=== PATIENT | female | born 1950 | race Caucasian/White ===

== ENCOUNTER 2017-07-08 12:32 | Emergency (ER) | payer MEDICARE, BC ==
--- NOTE | 2017-07-08 12:43 | EDM.PDOC ---
ED HPI GENERAL MEDICAL PROBLEM - General Chief Complaint: Gastrointestinal Problem Stated Complaint: TAKING CHEMO AND HAVING TROUBLE KEEPING ANYTHING D Time Seen by Provider: 07/08/17 12:32 Source of Information: Reports: Patient, Family, Old Records, RN, RN Notes Reviewed History Limitations: Reports: No Limitations - History of Present Illness INITIAL COMMENTS - FREE TEXT/NARRATIVE: Patient presents to the ED at [facility] with worsening nausea and vomiting. Patient was diagnosed some time ago with Stage IIIc Ovarian cancer. She is being treated through [facility] in [place] by Dr. Blanc. The patient normally has issues with N/V post chemo treatments. She states todays symptoms are not well controlled with her antiemetics at home. She also states she was suppose to get an IV infusion of NS yesterday, but did not received it. Otherwise, patient states she feels ok. No pain. Feels somewhat weak, but that is her normal. Vomitus has been green/bile. She is not even able to keep water down at times. Otherwise no other complaints. Patient states she usually has some nausea after he Taxol chemo injections, but todays seems worse and her PO Zofran does not seem to be helping. Onset Date: 07/07/17 - Related Data Allergies Allergy/AdvReac Type Severity Reaction Status Date / Time No Known Allergies Allergy Verified 07/08/17 13:12 Home Meds: Home Meds Aspirin 81 mg PO DAILY 07/08/17 [History] Fish Oil/DHA/EPA [Fish Oil 1,200 MG] 2 each PO DAILY 07/08/17 [History] Lisinopril [Zestril] 15 mg PO DAILY 07/08/17 [History] Multivitamin [Multivitamins] 1 each PO DAILY 07/08/17 [History] Mv-Mn/FA/Vit K/Lycop/Lut/Zeaxa [Ocuvite Eye + Multi Tablet] 1 each PO DAILY [History] Ondansetron [Zofran] 8 mg PO BID 07/08/17 [History] Polyethylene Glycol 3350 [MiraLAX] 17 gm PO DAILY 07/08/17 [History] Polyvinyl Alcohol/Povidone/Pf [Refresh Classic Eye Drops] 2 each OP BEDTIME [History] Prochlorperazine Maleate [Compazine] 5 mg PO QID 07/08/17 [History] Past Medical History Cardiovascular History: Reports: Hypertension Oncologic (Cancer) History: Reports: Ovarian Social & Family History - Tobacco Use Smoking Status *Q: Never Smoker - Recreational Drug Use Recreational Drug Use: No ED ROS GENERAL - Review of Systems Review Of Systems: See Below Constitutional: Reports: Weakness (chronic). Denies: Fever, Chills Respiratory: Denies: Shortness of Breath, Cough Cardiovascular: Denies: Chest Pain, Palpitations GI/Abdominal: Reports: Nausea, Vomiting. Denies: Abdominal Pain Skin: Reports: No Symptoms Neurological: Reports: No Symptoms. Denies: Dizziness, Headache ED EXAM, GI/ABD - Physical Exam Exam: See Below Exam Limited By: No Limitations General Appearance: Alert, No Apparent Distress, Thin, Cachetic. No: Active Emesis Respiratory/Chest: No Respiratory Distress, Lungs Clear, Normal Breath Sounds Cardiovascular: Normal Peripheral Pulses, Regular Rate, Rhythm GI/Abdominal Exam: Normal Bowel Sounds, Soft, Non-Tender Extremities: Normal Inspection Neurological: Alert, Oriented Skin Exam: Warm, Dry, Intact, Normal Color, No Rash Course - Vital Signs Last Recorded V/S: Last Vital Signs Temp 36.4 C 07/08/17 14:03 Pulse 69 07/08/17 14:03 Resp 16 07/08/17 14:03 BP 156/82 H 07/08/17 14:03 Pulse Ox 100 07/08/17 14:03 - Orders/Labs/Meds Orders: Active Orders 24 hr Category Date Time Status Implanted Port Access [RC] ONETIME Care 07/08/17 13:01 Active Magnesium Sulfate/Water [Magnesium Sulfate 4 GM in Med 07/08/17 13:52 Active Water 100 ML] 4 gm Premix Bag 1 bag IV ONETIME Potassium Chloride [KCL 20 MEQ in Water 50 ML] 20 meq Med 07/08/17 13:52 Active Premix Bag 1 bag IV ONETIME Medication Orders Potassium Chloride 20 meq/ (Premix) 50 mls @ 50 mls/hr IV ONETIME ONE Stop: 07/08/17 14:51 Last Admin: 07/08/17 14:12 Dose: 50 mls/hr Magnesium Sulfate 4 gm/ Premix 100 mls @ 25 mls/hr IV ONETIME ONE Stop: 07/08/17 17:51 Last Admin: 07/08/17 13:58 Dose: 25 mls/hr Labs: Laboratory Tests 07/08/17 07/08/17 Range/Units 12:57 12:57 WBC 3.3 L (4.0-10.0) x10^3/uL RBC 3.29 L (4.00-5.50) x10^6/uL Hgb 9.7 L (12.0-16.0) g/dL Hct 27.7 L (33.0-47.0) % MCV 84.2 (78.0-93.0) fL MCH 29.5 (26.0-32.0) pg MCHC 35.0 (32.0-36.0) g/dL RDW Coeff of Estefani 15.7 H (10.0-15.0) % Plt Count 264 (130-400) x10^3/uL Neut % (Auto) 59.0 (50.0-80.0) % Lymph % (Auto) 38.3 (25.0-50.0) % [place] % (Auto) 2.1 (2.0-11.0) % Eos % (Auto) 0.6 (0.0-4.0) % Baso % (Auto) 0.0 L (0.2-1.2) % Sodium 137 (136-145) mmol/L Potassium 2.7 L* (3.5-5.1) mmol/L Chloride 98 (98-107) mmol/L Carbon Dioxide 29 (21-32) mmol/L BUN 29 H (7-18) mg/dL Creatinine 1.1 H (0.55-1.02) mg/dL Est Cr Clr Drug Dosing 39.63 mL/min Estimated GFR (MDRD) 50 Glucose 119 H (74-106) mg/dL Calcium 8.8 (8.5-10.1) mg/dL Magnesium 1.0 L (1.8-2.4) mg/dL Meds: Medications Generic Name Dose Route Start Last Admin Trade Name Freq PRN Reason Stop Dose Admin Potassium Chloride 20 meq/ 50 mls @ 50 mls/hr 07/08/17 13:52 07/08/17 14:12 Premix IV 07/08/17 14:51 50 mls/hr ONETIME ONE Administration Magnesium Sulfate 4 gm/ Premix 100 mls @ 25 mls/hr 07/08/17 13:52 07/08/17 13 :58 IV 07/08/17 17:51 25 mls/hr ONETIME ONE Administration Discontinued Medications Generic Name Dose Route Start Last Admin Trade Name Víctor PRN Reason Stop Dose Admin Sodium Chloride 1,000 mls @ 999 mls/hr 07/08/17 13:02 07/08/17 12:58 Normal Saline IV 07/08/17 14:02 999 mls/hr ONETIME ONE Administration Potassium Chloride 20 meq/ 0 mls @ 50 mls/hr 07/08/17 13:51 07/08/17 13:58 Premix IV 07/08/17 13:52 50 mls/hr ONETIME ONE Administration Ondansetron HCl 4 mg 07/08/17 13:02 07/08/17 13:06 Zofran IVPUSH 07/08/17 13:03 4 mg ONETIME ONE Administration Departure - Departure Time of Disposition: 14:32 Disposition: Home, Self-Care 01 Condition: Good Clinical Impression: Ovarian cancer, bilateral, Chemotherapy induced nausea and vomiting, Hypokalemia, Hypomagnesemia Nausea & vomiting Qualifiers: Vomiting type: unspecified Vomiting Intractability: non-intractable Qualified Code(s): R11.2 - Nausea with vomiting, unspecified - Discharge Information Instructions: Nausea and Vomiting, Adult, [id number] Referrals: Cierra Daniel MD [Primary Care Provider] - Forms: ED Department Discharge Additional Instructions: 1. Stay well hydrated and rest as you are able to 2. Continue taking your home medications as ordered 3. See your Primary as symptoms warrant 4. If symptoms get worse, return to ER for further treatment 5. Recommend having your blood levels rechecked tomorrow - Problem List Review Problem List Initiated/Reviewed/Updated: Yes - My Orders Last 24 Hours: My Active Orders 07/08/17 13:01 Implanted Port Access [RC] ONETIME 07/08/17 13:52 Magnesium Sulfate/Water [Magnesium Sulfate 4 GM in Water 100 ML] 4 gm Premix Bag 1 bag IV ONETIME Potassium Chloride [KCL 20 MEQ in Water 50 ML] 20 meq Premix Bag 1 bag IV ONETIME - Assessment/Plan Last 24 Hours: My Active Orders 07/08/17 13:01 Implanted Port Access [RC] ONETIME 07/08/17 13:52 Magnesium Sulfate/Water [Magnesium Sulfate 4 GM in Water 100 ML] 4 gm Premix Bag 1 bag IV ONETIME Potassium Chloride [KCL 20 MEQ in Water 50 ML] 20 meq Premix Bag 1 bag IV ONETIME Plan: Patient will be an extended ER visit for IV potassium and magnesium. Once those are infused, patient will be discharged home. Recommend she ask her PCP tomorrow to redraw levels to check repletement.
[2017-07-08] MEDS ORDERED: Sodium Chloride 0.9% 1,000 ML IV ONE (13:02)
[2017-07-08] MEDS ORDERED: Ondansetron 4 MG/2 ML SDV IVPUSH ONE ×2 (13:02→17:09)
[2017-07-08] MEDS ORDERED: Potassium Chloride 20 MEQ in Premix Bag 1 BAG IV ONE ×2 (13:51→13:52)
[2017-07-08] MEDS ORDERED: Magnesium Sulfate/Water 4 GM in Premix Bag 1 BAG IV ONE (13:52)
== END 2017-07-08 18:17 | disposition home or self-care (01) ==
LOC: VM.ED 12:32
DX: R11.2 Nausea with vomiting, unspecified (principal); T45.1X5A Adverse effect of antineoplastic and immunosuppressive drugs, initial encounter; C56.2 Malignant neoplasm of left ovary; C56.1 Malignant neoplasm of right ovary; E87.6 Hypokalemia; E83.42 Hypomagnesemia; I10 Essential (primary) hypertension; Z79.82 Long term (current) use of aspirin; Z79.899 Other long term (current) drug therapy
CPT/HCPCS: 80048; 83735; 85025; 96361; 96365; 96366; 96368; 96375; 96376; 99284; J1642; J2405; J3475; J3480; J7030; 99283-GF

== ENCOUNTER 2018-11-28 06:48 | Day surgery (SDC) | payer MEDICARE, BC ==
[2018-11-28] MEDS ORDERED: Lactated Ringers 1,000 ML IV SCH (07:00)
[2018-11-28] MEDS ORDERED: fentaNYL 100 MCG/2 ML SDV ONE (08:54)
[2018-11-28] MEDS ORDERED: Midazolam 1 MG/ML 2 ML SDV ONE (08:54)
[2018-11-28] MEDS ORDERED: Propofol 200 MG/20 ML SDV ONE (08:54)
--- NOTE | 2018-11-28 09:55 | OR ---
PRE-OPERATIVE DIAGNOSES: 1. Screening colonoscopy. 2. Positive family history of colon cancer in sister, diagnosed at age 57. The patient's last colonoscopy in 2012 was normal. 3. History of ovarian cancer diagnosed in 2017. POST-OPERATIVE DIAGNOSES: Normal colon and normal distal ileum. PROCEDURE: Colonoscopy. SURGEON: Jose Samayoa M.D. ANESTHESIA: Monitored anesthesia care. BOWEL PREP: Good. DESCRIPTION OF PROCEDURE: Ariela is a 68-year-old female, was brought to the endoscopy suite after discussing risks and benefits of the procedure. Informed consent was obtained for conscious sedation and colonoscopy with or without biopsy and/or polypectomy. We also discussed possibility of missed lesions. Pre-procedure exam was unremarkable. IV, oxygen, and monitors were placed. The patient was placed in the left lateral decubitus position. Sedation was administered and a digital rectal exam was performed which was unremarkable. Colonoscope was passed into the rectum and slowly advanced all the way to the cecum. Cecum was viewed and photographed. Ileocecal valve was intubated and distal ileum was normal in appearance. The colonoscope was slowly withdrawn and the mucosa was closed observed in a direct circumferential manner. The ascending colon was normal. The transverse colon was unremarkable. The descending colon was unremarkable. The sigmoid colon was unremarkable. Retroflexion was performed and rectal mucosa was unremarkable. Scope was removed. The patient tolerated the procedure well. The patient was monitored until that baseline status. Discharge instructions were reviewed and the patient was discharged in good condition. COMPLICATIONS: None. TOTAL TIME: 23 minutes. ESTIMATED BLOOD LOSS: None. RECOMMENDATIONS/FOLLOW-UP: Given the positive family history of colon cancer, I would recommend repeating colonoscopy again in 5 years. I would like to kindly thank Dr. Cierra Daniel for this referral. DMB: 11/28/2018 09:20:50 MODL: 11/28/2018 09:46:55 /[id number]
== END 2018-11-28 10:40 | disposition home or self-care (01) ==
LOC: VM.SDS 06:48
PROVIDERS: ATTEND Family Medicine
DX: Z12.11 Encounter for screening for malignant neoplasm of colon (principal); Z80.0 Family history of malignant neoplasm of digestive organs; Z85.43 Personal history of malignant neoplasm of ovary; I10 Essential (primary) hypertension; M62.81 Muscle weakness (generalized); R63.5 Abnormal weight gain; Z79.82 Long term (current) use of aspirin; Z79.899 Other long term (current) drug therapy
CPT/HCPCS: 00812; J1642; J2250; J2704; J3010; J7120

== ENCOUNTER 2019-12-01 00:29 | Emergency (ER) | payer MEDICARE, BC ==
[2019-12-01] MEDS ORDERED: cloNIDine 0.1 MG Tab PO ONE (00:50)
[2019-12-01 01:31] LABS: CHLORIDE,CL 103 mmol/L (98-107); SODIUM,NA 138 mmol/L (136-145)
[2019-12-01 01:32] LABS: ANION GAP 10.6 mmol/L (10-20)
--- NOTE | 2019-12-01 02:02 | EDM.PDOC ---
ED HPI GENERAL MEDICAL PROBLEM - General Chief Complaint: ENT Problem Stated Complaint: nosebleed Time Seen by Provider: 12/01/19 00:38 Source of Information: Reports: Patient, Family History Limitations: Reports: No Limitations - History of Present Illness INITIAL COMMENTS - FREE TEXT/NARRATIVE: Pt. presents to ER with complaints of bloody nose. Pt. states that she was bleeding from both nares, and by the time she arrived to ER, the bleeding had improved and was only present from the R nare. Pt. is currently undergoing chemotherapy for stage IIIc ovarian carcinoma which has been treated surgically , as well as with chemotherapy. She is currently on carboplatin, gemcitabine and bevacizumab. Last platelet count was 138 approx 1 week ago. HGB was 8.7 at that time. Pt. blood pressure has been increasing as well, thought to be secondary to the bevacizumab. Her Lisinopril was recently increased from 10mg daily to 20mg daily, but it appears her blood pressure is still quite elevated ( 158/88 at last clinic appointment). Pt. is not currently anticoagulated. She is not on aspirin or antiplatelet therapy. Pt. states that she is not experiencing any headache, chest pain, shortness of breath, or other worrisome signs/ symptoms. Pt. states that this is the first nosebleed she has experienced recently. Denies any head or facial trauma. Onset Date: 11/30/19 Location: Reports: Face - Related Data Allergies Allergy/AdvReac Type Severity Reaction Status Date / Time No Known Allergies Allergy Verified 12/01/19 00:29 Home Meds: Home Meds Fish Oil/DHA/EPA [Fish Oil 1,200 MG] 2 each PO DAILY 07/08/17 [History] Polyvinyl Alcohol/Povidone/Pf [Refresh Classic Eye Drops] 2 each OP BEDTIME [History] L.acidoph,Paracasei, B.lactis [Probiotic] 1 each PO DAILY 11/26/18 [History] Lisinopril 20 mg PO DAILY 11/26/18 [History] Magnesium Oxide [Magnesium] 1 cap PO DAILY 11/26/18 [History] Oscillococinum 1 tab PO ASDIRECTED PRN 12/01/19 [History] Prochlorperazine [Compazine] 10 mg PO Q6H PRN 12/01/19 [History] dexAMETHasone [Dexamethasone] 8 mg PO ASDIRECTED 12/01/19 [History] Past Medical History HEENT History: Reports: None Cardiovascular History: Reports: Hypertension Respiratory History: Reports: Other (See Below) Other Respiratory History: HX pleural effusion Gastrointestinal History: Reports: Chronic Constipation, Colon Polyp, GERD, Other (See Below) Other Gastrointestinal History: Functional diarrhea. Chemo induced N\V MICROSTRATEGY BI DEVELOPER History: Reports: Other (See Below) Other MICROSTRATEGY BI DEVELOPER History: Fibrocystic breast disease Other Musculoskeletal History: Disorder of bones Neurological History: Reports: Other (See Below) Other Neuro History: Drug-induced polyneuropathy Psychiatric History: Reports: Other (See Below) Other Psychiatric History: Insomnia Endocrine/Metabolic History: Reports: Osteoporosis, Other (See Below) Other Endocrine/Metabolic History: Hypomagnesium. LAP IP port placement Hematologic History: Reports: Anemia Oncologic (Cancer) History: Reports: Ovarian - Past Surgical History Cardiovascular Surgical History: Reports: None Respiratory Surgical History: Reports: Thoracentesis GI Surgical History: Reports: Colonoscopy, EGD Female Surgical History: Reports: Breast Biopsy, Cystoscopy, Hysterectomy, Salpingo-Oophorectomy Endocrine Surgical History: Reports: None Oncologic Surgical History: Reports: Biopsy of Breast Social & Family History - Tobacco Use Smoking Status *Q: Never Smoker ED ROS GENERAL - Review of Systems Review Of Systems: See Below Constitutional: Reports: No Symptoms HEENT: Reports: Nosebleed Respiratory: Reports: No Symptoms Cardiovascular: Reports: Blood Pressure Problem. Denies: Chest Pain, Dyspnea on Exertion, Edema, Lightheadedness, Orthopnea, Palpitations, PND, Syncope Endocrine: Reports: No Symptoms GI/Abdominal: Reports: No Symptoms : Reports: No Symptoms Musculoskeletal: Reports: No Symptoms Skin: Reports: No Symptoms Neurological: Reports: No Symptoms Psychiatric: Reports: No Symptoms Hematologic/Lymphatic: Reports: No Symptoms Immunologic: Reports: No Symptoms ED EXAM, GENERAL - Physical Exam Exam: See Below Exam Limited By: No Limitations General Appearance: Alert, WD/WN, No Apparent Distress Eye Exam: Bilateral Eye: EOMI, PERRL Nose: Other (No obvious trauma noted. No active bleeding noted. ) Throat/Mouth: Normal Inspection, Normal Lips, Normal Teeth, Normal Gums, Normal Voice, No Airway Compromise, Other (No significant bleeding noted to posterior hypopharynx.) Head: Atraumatic, Normocephalic Neck: Normal Inspection, Supple, Non-Tender, Full Range of Motion Respiratory/Chest: No Respiratory Distress, Lungs Clear, Normal Breath Sounds, No Accessory Muscle Use, Chest Non-Tender Cardiovascular: Normal Peripheral Pulses, Regular Rate, Rhythm, No Edema Neurological: Alert, Oriented, CN II-XII Intact, Normal Cognition, Normal Gait Psychiatric: Normal Affect, Normal Mood Course - Vital Signs Last Recorded V/S: Last Vital Signs Temp 36.7 C 12/01/19 00:30 Pulse 63 12/01/19 00:30 Resp 18 12/01/19 00:30 BP 174/72 H 12/01/19 01:34 Pulse Ox 96 12/01/19 00:30 - Orders/Labs/Meds Labs: Laboratory Tests 12/01/19 12/01/19 12/01/19 Range/Units 01:06 01:06 01:06 WBC 4.4 (4.0-10.0) x10^3/uL RBC 2.59 L (4.00-5.50) x10^6/uL Hgb 8.2 L D (12.0-16.0) g/dL Hct 24.6 L (33.0-47.0) % MCV 95.0 H D (78.0-93.0) fL MCH 31.7 (26.0-32.0) pg MCHC 33.3 (32.0-36.0) g/dL RDW Coeff of Estefani 19.2 H (10.0-15.0) % Plt Count 252 (130-400) x10^3/uL Neut % (Auto) 55.5 (50.0-80.0) % Lymph % (Auto) 42.5 (25.0-50.0) % [place] % (Auto) 1.1 L (2.0-11.0) % Eos % (Auto) 0.9 (0.0-4.0) % Baso % (Auto) 0.0 L (0.2-1.2) % PT 9.9 (9.5-12.3) SEC INR 0.9 L (2.0-3.5) Sodium 138 (136-145) mmol/L Potassium 3.6 (3.5-5.1) mmol/L Chloride 103 (98-107) mmol/L Carbon Dioxide 28 (21-32) mmol/L Anion Gap 10.6 (10-20) mmol/L BUN 20 H (7-18) mg/dL Creatinine 0.8 (0.55-1.02) mg/dL Est Cr Clr Drug Dosing TNP Estimated GFR (MDRD) > 60 Glucose 114 H (74-106) mg/dL Calcium 8.8 (8.5-10.1) mg/dL Corrected Calcium 9.76 (8.5-10.1) mg/dL Total Bilirubin 0.3 (0.2-1.0) mg/dL AST 26 (15-37) U/L ALT 71 H (14-59) U/L Alkaline Phosphatase 82 (46-116) U/L Total Protein 5.9 L (6.4-8.2) g/dL Albumin 2.8 L (3.4-5.0) g/dL Globulin 3.1 Albumin/Globulin Ratio 0.90 Meds: Medications Discontinued Medications Generic Name Dose Route Start Last Admin Trade Name Freq PRN Reason Stop Dose Admin Clonidine HCl 0.2 mg 12/01/19 00:50 12/01/19 00:55 Catapres PO 12/01/19 00:51 0.2 mg ONETIME ONE Administration - Re-Assessments/Exams Free Text/Narrative Re-Assessment/Exam: Pt. was given clonidine 0.2mg PO. Blood pressure was rechecked and found to be in the 170/80 range. No further bleeding was noted and resolved spontaneously. Pt. states that she was feeling fine and wanted to get home for the night. She was otherwise asymptomatic. Departure - Departure Time of Disposition: 01:45 Disposition: Home, Self-Care 01 Clinical Impression: Epistaxis - Discharge Information Instructions: Nosebleed, Adult, Amlodipine tablets, Hypertension, Adult Referrals: PCP,Unobtain [Primary Care Provider] - Forms: ED Department Discharge Additional Instructions: Continue with your current medications, including lisinopril at current dosage. Starting tomorrow, start amlodipine 5mg once daily. Do not blow your nose for 24 hours. If it starts bleeding again, hold the nose closed. Return to ER if it doesn't stop within 60 min. Follow-up with Dr. Daneil in 10-14 days for recheck. Monitor your blood pressure a few times a week. Sepsis Event Note (ED) - Evaluation Sepsis Screening Result: No Definite Risk - Focused Exam Vital Signs: Vital Signs Temp Pulse Resp BP BP BP Pulse Ox 12/01/19 01:34 174/72 H 12/01/19 00:55 213/76 H 12/01/19 00:30 36.7 C 63 18 213/76 H 96 - Problem List Review Problem List Initiated/Reviewed/Updated: Yes - Assessment/Plan Plan: Continue with your current medications, including lisinopril at current dosage. Starting tomorrow, start amlodipine 5mg once daily. Do not blow your nose for 24 hours. If it starts bleeding again, hold the nose closed. Return to ER if it doesn't stop within 60 min. Follow-up with Dr. Daniel in 10-14 days for recheck. Monitor your blood pressure a few times a week.
== END 2019-12-01 01:50 | disposition home or self-care (01) ==
LOC: VM.ED 00:29
DX: R04.0 Epistaxis (principal); I10 Essential (primary) hypertension; Z79.899 Other long term (current) drug therapy; C56.9 Malignant neoplasm of unspecified ovary
CPT/HCPCS: 80053; 85025; 85610; 99283; 99283-GF; A9270-GY

== ENCOUNTER 2020-09-16 16:41 | Emergency (ER) | payer MEDICARE, BC ==
--- NOTE | 2020-09-16 17:17 | EDM.PDOC ---
ED HPI GENERAL MEDICAL PROBLEM - General Chief Complaint: Respiratory Problem Stated Complaint: SOB Time Seen by Provider: 09/16/20 16:41 Source of Information: Reports: Patient History Limitations: Reports: No Limitations - History of Present Illness INITIAL COMMENTS - FREE TEXT/NARRATIVE: Ariela is a 70 year old female who presents to ER with complaints of abdominal bloating and shortness of breath. States over the last few days her abdomen has been more bloated, "feels like when I was first diagnosed with my ovarian cancer back in 2017". She had been doing well but her CA-125 had gone up, has been again on chemo. Was not able to get chemo over the last 3 weeks due to her covid vaccine and then being anemic with hemoglobin at 6.4. She became more concerned today as is having more trouble getting enough air in. Contacted [facility] and was told should be evaluated and "have scans" in the ED. Denies fever. No nausea or vomiting. Is uncomfortable but denies any pain. No cough. Onset: Gradual Duration: Day(s):, Getting Worse Location: Reports: Chest, Abdomen Associated Symptoms: Reports: Shortness of Breath. Denies: Confusion, Chest Pain, Cough, Fever/Chills, Loss of Appetite, Malaise, Nausea/Vomiting, Weakness Abdominal Pain Score (Numeric/FACES): 2 - Related Data Allergies Allergy/AdvReac Type Severity Reaction Status Date / Time No Known Allergies Allergy Verified 09/16/20 18:17 Home Meds: Home Meds Fish Oil/DHA/EPA [Fish Oil 1,200 MG] 2 each PO DAILY 07/08/17 [History] Polyvinyl Alcohol/Povidone/Pf [Refresh Classic Eye Drops] 2 each OP BEDTIME 07/08/17 [History] L.acidoph,Paracasei, B.lactis [Probiotic] 1 each PO DAILY 11/26/18 [History] Lisinopril 40 mg PO DAILY 11/26/18 [History] Magnesium Oxide [Magnesium] 500 mg PO DAILY 11/26/18 [History] Oscillococinum 1 tab PO ASDIRECTED PRN 12/01/19 [History] Prochlorperazine [Compazine] 10 mg PO Q6H PRN 12/01/19 [History] hydroCHLOROthiazide [Hydrochlorothiazide] 25 mg PO DAILY 04/01/21 [History] Past Medical History HEENT History: Reports: None Cardiovascular History: Reports: Hypertension Respiratory History: Reports: Other (See Below) Other Respiratory History: HX pleural effusion Gastrointestinal History: Reports: Chronic Constipation, Colon Polyp, GERD, Other (See Below) Other Gastrointestinal History: Functional diarrhea. 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 LAP IP port placement Hematologic History: Reports: Anemia Oncologic (Cancer) History: Reports: Ovarian - Past Surgical History Cardiovascular Surgical History: Reports: None Respiratory Surgical History: Reports: Thoracentesis GI Surgical History: Reports: Colonoscopy, EGD Female Surgical History: Reports: Breast Biopsy, Cystoscopy, Hysterectomy, Salpingo-Oophorectomy Endocrine Surgical History: Reports: None Oncologic Surgical History: Reports: Biopsy of Breast Social & Family History - Tobacco Use Tobacco Use Status *Q: Unknown Ever Used Tobacco ED ROS GENERAL - Review of Systems Review Of Systems: See Below Constitutional: Reports: Malaise. Denies: Fever, Chills, Weakness, Fatigue, Decreased Appetite HEENT: Denies: Ear Pain, Sinus Problem, Throat Pain, Vertigo Respiratory: Reports: Shortness of Breath. Denies: Cough Cardiovascular: Denies: Chest Pain, Edema, Lightheadedness Endocrine: Reports: Fatigue GI/Abdominal: Reports: Distension. Denies: Abdominal Pain, Nausea, Vomiting : Reports: No Symptoms Musculoskeletal: Reports: No Symptoms Skin: Reports: No Symptoms Neurological: Reports: No Symptoms Psychiatric: Reports: No Symptoms ED EXAM, GENERAL - Physical Exam Exam: See Below Exam Limited By: No Limitations General Appearance: Alert, WD/WN, No Apparent Distress Ears: Normal External Exam, Normal TMs Nose: Normal Inspection, Normal Mucosa, No Blood Throat/Mouth: Normal Inspection, Normal Oropharynx Head: Normocephalic Neck: Normal Inspection, Supple, Non-Tender Respiratory/Chest: No Respiratory Distress, Lungs Clear, Normal Breath Sounds Cardiovascular: Regular Rate, Rhythm GI/Abdominal: Normal Bowel Sounds, Soft, Non-Tender, Distended Extremities: Normal Inspection, No Pedal Edema Neurological: Alert, Oriented Skin Exam: Warm, Dry Course - Vital Signs Last Recorded V/S: Last Vital Signs Temp 98.3 F 09/16/20 16:45 Pulse 72 09/16/20 18:51 Resp 16 09/16/20 18:51 BP 190/77 H 09/16/20 18:51 Pulse Ox 99 09/16/20 18:51 - Orders/Labs/Meds Labs: Laboratory Tests 09/16/20 Range/Units 17:16 Sodium 136 (136-145) mmol/L Potassium 3.8 (3.5-5.1) mmol/L Chloride 100 (98-107) mmol/L Carbon Dioxide 26 (21-32) mmol/L Anion Gap 13.8 (5-15) mmol/L BUN 18 (7-18) mg/dL Creatinine 0.9 (0.55-1.02) mg/dL Est Cr Clr Drug Dosing TNP Estimated GFR (MDRD) > 60 Glucose 96 (74-106) mg/dL Calcium 8.5 (8.5-10.1) mg/dL Corrected Calcium 9.78 (8.5-10.1) mg/dL Total Bilirubin 0.7 (0.2-1.0) mg/dL AST 18 (15-37) U/L ALT 16 (14-59) U/L Alkaline Phosphatase 75 (46-116) U/L C-Reactive Protein 8.2 H (<=0.9) mg/dL Total Protein 5.8 L (6.4-8.2) g/dL Albumin 2.4 L (3.4-5.0) g/dL Globulin 3.4 Albumin/Globulin Ratio 0.71 Amylase 33 (25-115) U/L Lipase 87 (73-393) U/L - Re-Assessments/Exams Free Text/Narrative Re-Assessment/Exam: 09/16/20 1800- Lab results are stable, CRP is high. Will proceed with CT scans of chest, abdomen and pelvis. 09/16/20 19:00- Spoke with Dr. Conde, oncology at [place]. Advised would need to be admitted to hospital service 1950- Dr. Johnson called from hospital services. Status update given. Agreed to accept the patient in transfer. Spoke with and patient, do feel she is stable and safe to travel by private auto. agrees and feels comfortable with that plan. Departure - Departure Time of Disposition: 19:59 Disposition: DC/Tfer to Acute Hospital 02 Condition: Serious Clinical Impression: Ovarian cancer, bilateral, Ascites, Metastatic disease - Discharge Information *PRESCRIPTION DRUG MONITORING PROGRAM REVIEWED*: No *COPY OF PRESCRIPTION DRUG MONITORING REPORT IN PATIENT SHANE: No Referrals: Cierra Daniel MD [Primary Care Provider] - Forms: ED Department Discharge Additional Instructions: Transfer by private auto to [facility]. Sepsis Event Note (ED) - Focused Exam Vital Signs: Vital Signs Temp Pulse Resp BP Pulse Ox 09/16/20 18:51 72 16 190/77 H 99 09/16/20 16:45 98.3 F 94 16 205/89 H 99
[2020-09-16 17:42] LABS: CHLORIDE,CL 100 mmol/L (98-107); SODIUM,NA 136 mmol/L (136-145)
[2020-09-16 17:43] LABS: ANION GAP 13.8 mmol/L (5-15)
--- NOTE | 2020-09-16 19:02 | CT ---
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 There is no mediastinal mass or adenopathy. The great vessels are intact. There are no pulmonary emboli seen Pulmonary embolus technique was not used. There is ascites. 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 The pelvic mass has doubled in size There is likely bilateral iliac venous obstruction There is bilateral hydronephrosis The liver and spleen, aorta, adrenals, and pancreas otherwise are unremarkable Abnormal subcutaneous anterior abdominal wall midline soft tissue density is seen appearing to represent omental disease at a site of previous surgical incision IMPRESSION: PARTIAL DISTAL SMALL BOWEL OBSTRUCTION SEVERE PROGRESSION OF DISEASE NO OBVIOUS LARGE CENTRAL PULMONARY EMBOLI ASCITES OMENTAL METASTASES BOWEL DISTENTION ILIAC VEIN OBSTRUCTION BILATERAL URETERAL OBSTRUCTION Keanu Zhang MD 09/16/20 [id number] Thank you for allowing us to participate in the care of your patient.
== END 2020-09-16 20:51 | disposition short-term general hospital (02) ==
LOC: VM.ED 16:41
DX: R18.8 Other ascites (principal); C56.2 Malignant neoplasm of left ovary; C56.1 Malignant neoplasm of right ovary; C79.9 Secondary malignant neoplasm of unspecified site; I10 Essential (primary) hypertension; Z79.899 Other long term (current) drug therapy
CPT/HCPCS: 71260; 74177; 80053; 82150; 83690; 86140; 99285-25

== ENCOUNTER 2020-09-19 10:05 | Emergency (ER) | payer MEDICARE, BC ==
--- NOTE | 2020-09-19 14:18 | EDM.PDOC ---
ED HPI GENERAL MEDICAL PROBLEM - General Chief Complaint: Genitourinary Problem Time Seen by Provider: 09/19/20 10:10 Source of Information: Reports: Patient History Limitations: Reports: No Limitations - History of Present Illness INITIAL COMMENTS - FREE TEXT/NARRATIVE: Pt. presents to ER with complaints of plugged zamudio catheter. She was discharged from [place] with Zamudio Cath in place, and stated that her catheter stopped draining into her leg bag this AM. Denies any fever or chills. No hematuria. Pt. was admitted at [place] with a partial SBO and discharged yesterday. Pt. has metastatic ovarian cancer. She has hydronephrosis which is the reason for the catheter. Pt. denies any abdominal pain. No fullness. She states that the urine was draining appropriately until this AM. Onset: Today Location: Reports: Pelvis Perineal Area Pain Score (Numeric/FACES): 3 - Related Data Allergies Allergy/AdvReac Type Severity Reaction Status Date / Time No Known Allergies Allergy Verified 09/16/20 18:17 Home Meds: Home Meds Fish Oil/DHA/EPA [Fish Oil 1,200 MG] 2 each PO DAILY 07/08/17 [History] Polyvinyl Alcohol/Povidone/Pf [Refresh Classic Eye Drops] 2 each OP BEDTIME 07/08/17 [History] L.acidoph,Paracasei, B.lactis [Probiotic] 1 each PO DAILY 11/26/18 [History] Lisinopril 40 mg PO DAILY 11/26/18 [History] Magnesium Oxide [Magnesium] 500 mg PO DAILY 11/26/18 [History] Oscillococinum 1 tab PO ASDIRECTED PRN 12/01/19 [History] Prochlorperazine [Compazine] 10 mg PO Q6H PRN 12/01/19 [History] hydroCHLOROthiazide [Hydrochlorothiazide] 25 mg PO DAILY 09/16/20 [History] Past Medical History HEENT History: Reports: None Cardiovascular History: Reports: Hypertension Respiratory History: Reports: Other (See Below) Other Respiratory History: HX pleural effusion Gastrointestinal History: Reports: Chronic Constipation, Colon Polyp, GERD, Other (See Below) Other Gastrointestinal History: Functional diarrhea. 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 LAP IP port placement Hematologic History: Reports: Anemia Oncologic (Cancer) History: Reports: Ovarian - Infectious Disease History Infectious Disease History: Reports: None - Past Surgical History Cardiovascular Surgical History: Reports: None Respiratory Surgical History: Reports: Thoracentesis GI Surgical History: Reports: Colonoscopy, EGD Female Surgical History: Reports: Breast Biopsy, Cystoscopy, Hysterectomy, Salpingo-Oophorectomy Endocrine Surgical History: Reports: None Oncologic Surgical History: Reports: Biopsy of Breast Social & Family History - Tobacco Use Tobacco Use Status *Q: Never Tobacco User ED ROS GENERAL - Review of Systems Review Of Systems: See Below Constitutional: Reports: No Symptoms HEENT: Reports: No Symptoms Respiratory: Reports: No Symptoms Cardiovascular: Reports: No Symptoms Endocrine: Reports: No Symptoms GI/Abdominal: Reports: No Symptoms : Reports: Other (Decreased urine output. ). Denies: Dysuria, Flank Pain Musculoskeletal: Reports: No Symptoms Skin: Reports: No Symptoms Neurological: Reports: No Symptoms Psychiatric: Reports: No Symptoms Hematologic/Lymphatic: Reports: No Symptoms Immunologic: Reports: No Symptoms ED EXAM, GENERAL - Physical Exam Exam: See Below Exam Limited By: No Limitations General Appearance: Alert, WD/WN, No Apparent Distress GI/Abdominal: Normal Bowel Sounds, Soft, Non-Tender, No Mass (Female) Exam: Normal External Exam ED GENERAL MEDICAL PROCEDURES - Additional/Other Procedure(s) Other (Free Text) Procedure(s): Nursing attempted to flush catheter-unsuccessful. Zamudio catheter was subsequently changed. Pt. had good clear urine output after it was changed. No gross hematuria or pyuria noted. Pt. did have a negative UA yesterday, so this was not repeated, as she was otherwise symptomatic. Course - Vital Signs Last Recorded V/S: Last Vital Signs Temp 36.4 C 09/19/20 10:10 Pulse 83 09/19/20 10:10 Resp 16 09/19/20 10:10 BP 136/63 09/19/20 10:10 Pulse Ox 98 09/19/20 10:10 Departure - Departure Time of Disposition: 14:38 Disposition: Home, Self-Care 01 Clinical Impression: Urinary retention - Discharge Information Instructions: Indwelling Urinary Catheter Insertion, Care After Referrals: Cierra Daniel MD [Primary Care Provider] - Forms: ED Department Discharge Additional Instructions: Keep catheter in as directed. Return to ER if you have problems with plugging, fever, chills, or other w orrisome signs/symptoms. Sepsis Event Note (ED) - Evaluation Sepsis Screening Result: No Definite Risk - Focused Exam Vital Signs: Vital Signs Temp Pulse Resp BP Pulse Ox 09/19/20 10:10 36.4 C 83 16 136/63 98 - Problem List Review Problem List Initiated/Reviewed/Updated: Yes - Assessment/Plan Plan: Keep catheter in as directed. Return to ER if you have problems with plugging, fever, chills, or other worrisome signs/symptoms.
== END 2020-09-19 11:00 | disposition home or self-care (01) ==
LOC: VM.ED 10:05
DX: R33.9 Retention of urine, unspecified (principal); I10 Essential (primary) hypertension; Z79.899 Other long term (current) drug therapy
CPT/HCPCS: 51702; 51798; 99283-25

== ENCOUNTER 2020-09-19 20:03 | Emergency (ER) | payer MEDICARE, BC ==
[2020-09-19 21:17] LABS: CHLORIDE,CL 97 mmol/L (98-107); SODIUM,NA 131 mmol/L (136-145)
[2020-09-19 21:19] LABS: ANION GAP 13.4 mmol/L (5-15)
[2020-09-19] MEDS ORDERED: Take Home: Sulfamethoxazole/Trimethoprim 800-160 MG Tab, 2 Tab Pack PO ONE (21:24)
--- NOTE | 2020-09-19 23:52 | EDM.PDOC ---
ED HPI GENERAL MEDICAL PROBLEM - General Chief Complaint: Genitourinary Problem Stated Complaint: Urinary Retention Time Seen by Provider: 09/19/20 20:15 Source of Information: Reports: Patient History Limitations: Reports: No Limitations - History of Present Illness INITIAL COMMENTS - FREE TEXT/NARRATIVE: Pt. presents to ER with complaints of decreased output into zamudio catheter and pain at the catheter site. She was seen in ER earlier today. Attempts were made to flush the catheter at that time but it had to be replaced. She states that her urine output into the leg bag today was 100ml removed at noon. After than, she had minimal output. states that he emptied maybe 5-10 mls at around 4. On arrival to ER, bladder scan was performed. Values ranged in the 120-140 range. Pt. states that she feels she has to urinate, and states that she feels some suprapubic fullness. This morning, she denied any discomfort/dysuria. She states that the discomfort started this evening. She states that occasionally urine leaks around the catheter. Onset: Today Location: Reports: Abdomen, Generalized Associated Symptoms: Reports: Malaise (states that she always feels tired.). Denies: Confusion, Chest Pain, Cough, Fever/Chills, Headaches, Loss of Appetite, Nausea/Vomiting, Seizure, Shortness of Breath, Syncope, Weakness - Related Data Allergies Allergy/AdvReac Type Severity Reaction Status Date / Time No Known Allergies Allergy Verified 09/19/20 21:20 Home Meds: Home Meds Fish Oil/DHA/EPA [Fish Oil 1,200 MG] 2 each PO DAILY 07/08/17 [History] Polyvinyl Alcohol/Povidone/Pf [Refresh Classic Eye Drops] 2 each OP BEDTIME 07/08/17 [History] L.acidoph,Paracasei, B.lactis [Probiotic] 1 each PO DAILY 11/26/18 [History] Lisinopril 40 mg PO DAILY 11/26/18 [History] Magnesium Oxide [Magnesium] 500 mg PO DAILY 11/26/18 [History] Oscillococinum 1 tab PO ASDIRECTED PRN 12/01/19 [History] Prochlorperazine [Compazine] 10 mg PO Q6H PRN 12/01/19 [History] hydroCHLOROthiazide [Hydrochlorothiazide] 25 mg PO DAILY 09/16/20 [History] Past Medical History HEENT History: Reports: None Cardiovascular History: Reports: Hypertension Respiratory History: Reports: Other (See Below) Other Respiratory History: HX pleural effusion Gastrointestinal History: Reports: Chronic Constipation, Colon Polyp, GERD, Other (See Below) Other Gastrointestinal History: Functional diarrhea. 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 LAP IP port placement Hematologic History: Reports: Anemia Oncologic (Cancer) History: Reports: Ovarian - Infectious Disease History Infectious Disease History: Reports: None - Past Surgical History Cardiovascular Surgical History: Reports: None Respiratory Surgical History: Reports: Thoracentesis GI Surgical History: Reports: Colonoscopy, EGD Female Surgical History: Reports: Breast Biopsy, Cystoscopy, Hysterectomy, Salpingo-Oophorectomy Endocrine Surgical History: Reports: None Oncologic Surgical History: Reports: Biopsy of Breast ED ROS GENERAL - Review of Systems Review Of Systems: See Below Constitutional: Reports: No Symptoms HEENT: Reports: No Symptoms Respiratory: Reports: No Symptoms Cardiovascular: Reports: No Symptoms Endocrine: Reports: No Symptoms GI/Abdominal: Reports: No Symptoms : Reports: Dysuria, Urinary Retention Musculoskeletal: Reports: No Symptoms Skin: Reports: No Symptoms Neurological: Reports: No Symptoms Psychiatric: Reports: No Symptoms Hematologic/Lymphatic: Reports: No Symptoms Immunologic: Reports: No Symptoms ED EXAM, GENERAL - Physical Exam Exam: See Below Exam Limited By: No Limitations General Appearance: Alert, WD/WN, No Apparent Distress Throat/Mouth: Normal Inspection, Normal Lips, Normal Teeth, Normal Oropharynx, No Airway Compromise Head: Atraumatic, Normocephalic GI/Abdominal: Soft, Non-Tender, No Organomegaly, No Distention Psychiatric: Normal Affect, Normal Mood Skin Exam: Warm, Dry, Intact, Normal Color, No Rash Course - Orders/Labs/Meds Orders: Active Orders 24 hr Category Date Time Status Bladder Scan [RC] ASDIRECTED Care 09/19/20 20:28 Active Urinary Catheter Assessment [RC] ASDIRECTED Care 09/19/20 20:29 Active CULTURE URINE [RM] Stat Lab 09/19/20 20:47 Received Labs: Laboratory Tests 09/19/20 09/19/20 09/19/20 Range/Units 20:47 20:54 20:54 WBC 11.9 H (4.0-10.0) x10^3/uL RBC 3.33 L (4.00-5.50) x10^6/uL Hgb 9.3 L (12.0-16.0) g/dL Hct 28.7 L (33.0-47.0) % MCV 86.2 D (78.0-93.0) fL MCH 27.9 (26.0-32.0) pg MCHC 32.4 (32.0-36.0) g/dL RDW Coeff of Estefani 18.3 H (10.0-15.0) % Plt Count 317 (130-400) x10^3/uL Add Manual Diff Yes Neutrophils % (Manual) 73 (50-80) % Band Neutrophils % 3 (0-6) % Lymphocytes % (Manual) 10 L (25-50) % Monocytes % (Manual) 11 (2-11) % Eosinophils % (Manual) 1 (0-4) % Metamyelocytes % 2 H (0) % Platelet Estimate Adequate Hypochromasia 1+ slight H Anisocytosis 3+ marked H Sodium 131 L (136-145) mmol/L Potassium 4.4 (3.5-5.1) mmol/L Chloride 97 L (98-107) mmol/L Carbon Dioxide 25 (21-32) mmol/L Anion Gap 13.4 (5-15) mmol/L BUN 22 H (7-18) mg/dL Creatinine 1.2 H (0.55-1.02) mg/dL Est Cr Clr Drug Dosing TNP Estimated GFR (MDRD) 45 Glucose 105 (74-106) mg/dL Calcium 8.7 (8.5-10.1) mg/dL Corrected Calcium 10.14 H (8.5-10.1) mg/dL Total Bilirubin 0.5 (0.2-1.0) mg/dL AST 19 (15-37) U/L ALT 14 (14-59) U/L Alkaline Phosphatase 74 (46-116) U/L Total Protein 6.1 L (6.4-8.2) g/dL Albumin 2.2 L (3.4-5.0) g/dL Globulin 3.9 Albumin/Globulin Ratio 0.56 Urine Color Yellow (YELLOW) Urine Appearance Slightly cloudy H (CLEAR) Urine pH 5.0 (5.0-8.0) Ur Specific Cost 1.020 Urine Protein 100 H (NEGATIVE) mg/dL Urine Glucose (UA) Negative (NEGATIVE) mg/dL Urine Ketones Trace H (NEGATIVE) mg/dL Urine Occult Blood Large H (NEGATIVE) Urine Nitrite Negative (NEGATIVE) Urine Bilirubin Small H (NEGATIVE) Urine Urobilinogen 0.2 (0.2) EU/dL Ur Leukocyte Esterase Trace H (NEGATIVE) Urine RBC 20-30 H (NOT SEEN) /HPF Urine WBC 5-10 H (NOT SEEN) /HPF Ur Squamous Epith Cells Occasional H (NOT SEEN) /HPF Amorphous Sediment Rare Urine Bacteria Occasional H (NOT SEEN) /HPF Urine Mucus Rare H (NOT SEEN) /LPF Meds: Medications Discontinued Medications Generic Name Dose Route Start Last Admin Trade Name Freq PRN Reason Stop Dose Admin Trimethoprim/Sulfamethoxazole 1 packet 09/19/20 21:24 09/19/20 21:32 Take Home: Sulfamethoxazole/Trimethoprim 800-160 Mg Tab, 2 Tab Pack PO 09/19/20 21:25 1 packet ONETIME ONE Administration - Re-Assessments/Exams Free Text/Narrative Re-Assessment/Exam: Urinary catheter was readjusted. The urine in the tubing/bag was returning back into the pts. bladder when she is lying down, as the bag was mounted on the anterior lower leg. Catheter/bag was readjusted to ensure dependent drainage. Departure - Departure Time of Disposition: 21:50 Disposition: Home, Self-Care 01 Clinical Impression: UTI, Urinary tract infectious disease, Zamudio catheter in place - Discharge Information Instructions: Urinary Tract Infection, Adult, [id number], Urinary Tract Infection, Adult, Sulfamethoxazole; Trimethoprim, [id number]-[id number] tablets, Probiotics Referrals: PCP,Unknown [Primary Care Provider] - Forms: ED Department Discharge Additional Instructions: Bactrim DS 1 twice daily for 7 days Drink plenty of fluids Your kidney function is normal. Follow-up with urologist this week, sooner if not gradually improving. - Problem List Review Problem List Initiated/Reviewed/Updated: Yes - My Orders Last 24 Hours: My Active Orders 09/19/20 20:28 Bladder Scan [RC] ASDIRECTED 09/19/20 20:29 Urinary Catheter Assessment [RC] ASDIRECTED 09/19/20 20:47 CULTURE URINE [RM] Stat - Assessment/Plan Last 24 Hours: My Active Orders 09/19/20 20:28 Bladder Scan [RC] ASDIRECTED 09/19/20 20:29 Urinary Catheter Assessment [RC] ASDIRECTED 09/19/20 20:47 CULTURE URINE [RM] Stat Plan: Bactrim DS 1 twice daily for 7 days Drink plenty of fluids Your kidney function is normal. Follow-up with urologist this week, sooner if not gradually improving. We will keep the catheter in place for now since you are having troubles with urinary retention.
== END 2020-09-19 21:50 | disposition home or self-care (01) ==
LOC: VM.ED 20:03
DX: N39.0 Urinary tract infection, site not specified (principal); I10 Essential (primary) hypertension; Z79.899 Other long term (current) drug therapy
CPT/HCPCS: 36415; 51702; 51798; 80053; 81001; 85025; 87086; 99283-25; 99284; A9270-GY

== ENCOUNTER 2020-10-27 15:26 | Inpatient (IN) | payer BC, MEDICARE ==
[2020-10-27] MEDS ORDERED: HYOSCYAMINE 0.125 MG PO PRN (16:40)
--- NOTE | 2020-10-27 18:38 | PCM.HP.2 ---
H&P History of Present Illness - General Date of Service: 10/27/20 Admit Problem/Dx: Admission Diagnosis/Problem Admission Diagnosis/Problem Hospice care Source of Information: Family, Old Records, Other (hospice nurse) History Limitations: Reports: Altered Mental Status - History of Present Illness Initial Comments - Free Text/Narative: Mrs. Enamorado is a 70 yo female with stage IV ovarian cancer who is admitted for end of life cares. She has been on hospice for . Over the past 24 hours, she has had a significant decline. She is less alert and interactive. She has not been eating/drinking much due to difficulty swallowing/mentation, and has been significantly more weak. The history is obtained from her and hospice nurse as the patient is not able to answer questions at this time. She has not been complaining of pain. She had some nausea/vomiting but that was last an issue about a week ago. Her is planning on contacting one of their friends who is a deacon to come and do last rites. - Related Data Allergies/Adverse Reactions: Allergies Allergy/AdvReac Type Severity Reaction Status Date / Time No Known Allergies Allergy Verified 09/19/20 21:20 Home Medications: Home Meds Haloperidol Lactate [Haldol 2 MG/ML Soln] 1 mg PO Q6H PRN 10/27/20 [History] Hyoscyamine [Levsin] 0.125 mg PO Q4HR PRN 10/27/20 [History] Morphine [Morphine 20 MG/ML Soln] 5 mg PO Q3H PRN 10/27/20 [History] Past Medical History HEENT History: Reports: None Cardiovascular History: Reports: Hypertension Respiratory History: Reports: Other (See Below) Other Respiratory History: HX pleural effusion Gastrointestinal History: Reports: Chronic Constipation, Colon Polyp, GERD, Other (See Below) Other Gastrointestinal History: Functional diarrhea. Chemo induced N\V [employer] History: Reports: Other (See Below) Other OB/BYN History: Fibrocystic breast disease Musculoskeletal History: Reports: Other (See Below) Other Musculoskeletal History: Disorder of bones Neurological History: Reports: Other (See Below) Other Neuro History: Drug-induced polyneuropathy Psychiatric History: Reports: Other (See Below) Other Psychiatric History: Insomnia Endocrine/Metabolic History: Reports: Osteoporosis, Other (See Below) Other Endocrine/Metabolic History: Hypomagnesium. LAP IP port placement Hematologic History: Reports: Anemia Oncologic (Cancer) History: Reports: Ovarian - Infectious Disease History Infectious Disease History: Reports: None - Past Surgical History HEENT Surgical History: Reports: None Cardiovascular Surgical History: Reports: None Respiratory Surgical History: Reports: Thoracentesis GI Surgical History: Reports: Colonoscopy, EGD Female Surgical History: Reports: Breast Biopsy, Cystoscopy, Hysterectomy, Salpingo-Oophorectomy Endocrine Surgical History: Reports: None Neurological Surgical History: Reports: None Oncologic Surgical History: Reports: Biopsy of Breast Dermatological Surgical History: Reports: None Social & Family History - Family History Family Medical History: No Pertinent Family History Cardiac: Reports: None - Tobacco Use Tobacco Use Status *Q: Never Tobacco User - Caffeine Use Caffeine Use: Reports: None - Recreational Drug Use Recreational Drug Use: No - Living Situation & Occupation Living situation: Reports: , with Family Occupation: Retired H&P Review of Systems - Review of Systems: Review Of Systems: Unable To Obtain Reason Not Obtained: mental status prohibits Exam - Exam Exam: See Below - Vital Signs Vital Signs: Last Vital Signs Temp 36.2 C 10/27/20 15:38 Pulse 71 10/27/20 15:38 Resp 12 10/27/20 15:38 BP 106/58 L 10/27/20 15:38 Pulse Ox 100 10/27/20 15:38 Weight: 54.703 kg - Exam General: Other (Resting comfortably in bed; does ask for water and identifies ) HEENT: Mucosa Moist & [place] Neck: Supple, Trachea Midline. No: Lymphadenopathy, Thyromegaly Lungs: Clear to Auscultation, Normal Respiratory Effort Cardiovascular: Regular Rate, Regular Rhythm, Normal S1, Normal S2 GI/Abdominal Exam: Normal Bowel Sounds, Soft, Non-Tender, Distended Extremities: Pedal Edema, Other (scattered petichiae) Peripheral Pulses: 2+: Radial (L), Radial (R) Skin: Warm, Dry, [place] Sepsis Event Note - Evaluation Sepsis Screening Result: No Definite Risk - Focused Exam Vital Signs: Vital Signs Temp Temp Pulse Resp BP Pulse Ox 10/27/20 15:38 36.2 C 36.2 C 71 12 106/58 L 100 *Q Meaningful Use (ADM) - VTE *Q VTE Anticoagulation Contraindications: Med/TX Not Indicated/Need - Problem List (1) Admission for hospice care SNOMED Code(s): 214971585, 833309492, 033227938 ICD Code: Z51.5 - ENCOUNTER FOR PALLIATIVE CARE Status: Acute Current Visit: Yes (2) Palliative care patient SNOMED Code(s): 468829792, 671773983 ICD Code: Z51.5 - ENCOUNTER FOR PALLIATIVE CARE Status: Acute Current Visit: Yes (3) Ovarian cancer SNOMED Code(s): 525256628 ICD Code: C56.9 - MALIGNANT NEOPLASM OF UNSPECIFIED OVARY Status: Chronic Current Visit: Yes Qualifiers: Laterality: unspecified laterality Qualified Code(s): C56.9 - Malignant neoplasm of unspecified ovary Problem List Initiated/Reviewed/Updated: Yes Orders Last 24hrs: Active Orders 24 hr Category Date Time Status Patient Status [ADT] Routine ADT 10/27/20 16:39 Active VTE/DVT Education [RC] .PRN Care 10/27/20 16:39 Active Regular Diet [DIET] Diet 10/27/20 Dinner Active Patient's Own Medication [Ptom] Med 10/27/20 16:40 Active 0 each PO Q4H PRN Patient's Own Medication [Ptom] Med 10/27/20 16:40 Active 0 each PO Q6H PRN Patient's Own Medication [Ptom] Med 10/27/20 17:03 Active 0 each SL Q3H PRN Anticoagulation Contraindications VTE [AST] Per Unit Oth 10/27/20 16:38 Ordered Routine Resuscitation Status Routine Resus Stat 10/27/20 16:38 Ordered Medication Orders Haloperidol Lactate 2 Mg/Ml Oral Soln 15 Ml Bottle *Pt Own Med* 0 each PO Q6H PRN PRN Reason: Nausea/vomiting/agiation Hyoscyamine [Levsin] 0.125 Mg Tablet *Pt Own Med* 0 each PO Q4H PRN PRN Reason: excessive secretions Morphine Oral Concentrate 20 Mg/Ml 30 Ml Bottle *Pt Own Med* 0 each SL Q3H PRN PRN Reason: Pain/SHORTNESS OF BREATH Assessment/Plan Comment:: Patient is a 70 yo female admitted for end of life cares in the setting of significant decline in the past 24 hours. Her medications will be continued as per prior to admission and adjusted as need be. Her code status is DNR/DNI/comfort measures only. Support offered to the family. They will contact their deacon for last rites.
--- NOTE | 2020-10-31 14:03 | DISCH ---
PRIMARY DIAGNOSIS: Stage IV ovarian cancer. Malignant ascites SUMMARY OF HOSPITAL COURSE: The patient was admitted for comfort cares on hospice as she was in a terminal condition. She had not been eating or drinking fluids. She was fairly lethargic, but comfortable, not in pain. The patient's hospital course was uneventful. She had cares given to her while she was here with Haldol,hycosamine, and morphine oral concentrate. The patient quietly at 6:05 on 10/31/2020. Family had been present. Also, they had spiritual care given to them as well. GM10/31/2020 12:42:52 MODL: 10/31/2020 13:54:40 /[id number] [id number]
== END 2020-10-31 06:05 | disposition expired | DRG 951 ==
LOC: VM.MS 15:29
PROVIDERS: ADMIT Family Medicine; ATTEND Family Medicine
DX: Z51.5 Encounter for palliative care (principal); C56.9 Malignant neoplasm of unspecified ovary; R18.0 Malignant ascites; I10 Essential (primary) hypertension; K59.09 Other constipation; K21.9 Gastro-esophageal reflux disease without esophagitis; K63.5 Polyp of colon; D64.9 Anemia, unspecified; Z66 Do not resuscitate; M81.0 Age-related osteoporosis without current pathological fracture; E83.42 Hypomagnesemia; G47.00 Insomnia, unspecified; G62.0 Drug-induced polyneuropathy; T50.905A Adverse effect of unspecified drugs, medicaments and biological substances, initial encounter; N60.19 Diffuse cystic mastopathy of unspecified breast; Z90.710 Acquired absence of both cervix and uterus; Z79.899 Other long term (current) drug therapy; Z90.79 Acquired absence of other genital organ(s)